=== PATIENT | female | born 2000 | race Caucasian/White ===

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

== ENCOUNTER 2020-12-15 03:53 | Emergency (ER) | payer OTHER, SELFPAY ==
[2019-06-02 13:09] VITALS: BMI 27.8
[2020-12-15 03:56] VITALS: TEMP 36.1; BMI 33.6
[2020-12-15] MEDS: 0.9% Normal Saline 1,000 ML 999 ML IV (03:57)
[2020-12-15] MEDS: Etomidate 20 MG/10 ML Vial IV (03:57)
[2020-12-15] MEDS: Rocuronium Bromide 50 MG/5 ML Vial 40 MG IV (03:57)
[2020-12-15 03:58] VITALS: BP 126/78; PULSE 123; RESP 16; O2SAT 100
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
[2020-12-15 04:13] LABS: Absolute Lymphocyte Count 1.85 X10^3/uL (0.83-4.51); Absolute Neutrophil Count 9.4 X10^3/uL (2.0-7.7); Basophil# 0.03 X10^3/uL; Basophil% 0.2 % (0-1); Eosinophil# 0.03 X10^3/uL; Eosinophils% 0.2 % (0-5); Hematocrit 40.9 % (37-47); Hemoglobin 12.8 g/dL (12.0-15.0); Lymphocyte # 1.85 X10^3/ul (0.83-4.51); Lymphocyte % 15.4 % (19-41); Mean Corp Hgb Conc 31.3 g/dL (32-36); Mean Corpuscular Hgb 29.1 pg (27.0-32.0); Mean Platelet Vol. 8.6 fl (6.2-12.0); Monocyte# 0.56 X10^3/uL; Monocyte% 4.7 % (0-10); NRBC Flagged by Analyzer 0 % (0-5); Neutrophil # 9.38 X10^3/uL (2.7-7.7); Neutrophil % 78.1 % (47-70); Platelet Count 398 K/mm3 (150-450); RBC Distribution Width CV 12.9 % (11.6-14.6); RBC Distribution Width SD 44.2 fl (35.1-43.9)
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
--- NOTE | 2020-12-15 04:21 | ED.RN ---
0357 RAMIN AND ETOMIDATE WERE GIVEN. [facility] ARRIVED AT [phone]. [phone] KAYE[address] OG PLACED. CALLED FOR PORTABLE CHEST FOR TUBE PLACEMENT. FLIGHT CREW REFUSED BOSS CATHETER DUE TO TIME CONSTRAINTS. MOTHER ON PHONE UPDATED BY WENDY SPICER RN. PT LEFT VIA [facility] AT 0412.
[2020-12-15 04:30] LABS: Anion Gap 7 (5-15); BUN 4 mg/dL (7-18); Calcium,Total 8.3 mg/dL (8.5-10.1); Chloride 110 mmol/L (98-107); Creatinine, Serum 0.66 mg/dL (0.55-1.02); EST Glomerular Filtration Rate 118 mL/min (>60); Est Glom Filt Rate - Afr Amer 143 mL/min (>60); Estimated Creatinine Clearance 126.22 ml/min; Glucose 100 mg/dL (74-106); Potassium 4.1 mmol/L (3.5-5.1); Sodium Level 144 mmol/L (136-145)
[2020-12-15 04:31] LABS: Internal QC Validated? YES +Cl - CLEAR BKGD; Pregnancy, Serum, hCG Quali. NEGATIVE Negative
[2020-12-15 05:06] VITALS: BP 134/86; PULSE 101; RESP 14; O2SAT 100
--- NOTE | 2020-12-15 05:23 | ED.RN ---
PARENTS WERE UPDATED BY WENDY Rondon
== END 2020-12-15 04:12 | disposition short-term general hospital (02) ==
PROVIDERS: Emergency Provider Student in an Organized Health Care Education/Training Program; PCP Family Medicine
DX: S01.511A Laceration without foreign body of lip, initial encounter (principal); S01.01XA Laceration without foreign body of scalp, initial encounter; R40.4 Transient alteration of awareness; S60.512A Abrasion of left hand, initial encounter; S60.511A Abrasion of right hand, initial encounter; S90.812A Abrasion, left foot, initial encounter; S90.811A Abrasion, right foot, initial encounter; V89.2XXA Person injured in unspecified motor-vehicle accident, traffic, initial encounter; Y93.9 Activity, unspecified; Y92.9 Unspecified place or not applicable
CPT/HCPCS: 31500; 71045; 80048; 82077; 84703; 85025; 96374; 96375; 99251; 99285; J7030; A4216; G0463

== ENCOUNTER 2021-01-24 12:30 | Emergency (ER) | payer MEDICAID, SELFPAY ==
[2021-01-24 12:32] VITALS: BP 119/80; PULSE 82; RESP 17; TEMP 36; O2SAT 100; BMI 26.5
--- NOTE | 2021-01-24 13:19 | CT_ITS ---
STUDY: CT CHEST WITHOUT CONTRAST REASON FOR EXAM: Female, 20 years old. Dysphagia following intubation. RADIATION DOSAGE (If Supplied By Facility): CTDIvol = ( 5.22 ) mGy, DLP = ( 197.18 ) mGycm TECHNIQUE: Transaxial imaging was performed without the administration of intravenous contrast material. Multiplanar coronal and sagittal images were reformatted. Individualized dose optimization techniques were used for this CT. COMPARISON: None. FINDINGS: The lungs are normal. There is no demonstrated pleural abnormality. Normal heart and pericardium. Normal mediastinum. Normal hilar regions. Normal unenhanced pulmonary arteries. Normal aorta arch and descending thoracic aorta. Normal osseous structures. There is no demonstrated abnormality of the visualized upper abdomen. CT/Chest without Contrast IMPRESSION: Normal unenhanced CT Chest examination. Electronically Signed: Jesse Perry MD at 13:58 EDT , Service support ,
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
== END 2021-01-24 15:52 | disposition home or self-care (01) ==
PROVIDERS: Emergency Provider Emergency Medicine; PCP Nurse Practitioner Family
DX: R09.89 Other specified symptoms and signs involving the circulatory and respiratory systems (principal); Z87.820 Personal history of traumatic brain injury
CPT/HCPCS: 71250; 99282

== ENCOUNTER → 2021-06-11 10:41 | Outpatient (CLI) | payer MEDICAID, SELFPAY ==
[2021-06-11 12:09] LABS: Erythrocyte Sedimentation Rate 10 mm/hr (0-30)
[2021-06-11 12:33] LABS: ALB/GLOB Ratio 1.1 RATIO (0.9-2.4); AST(SGOT) 17 U/L (15-37); Alanine Aminotransfer ALT/SGPT 30 U/L (13-56); Albumin, Serum 4.1 g/dL (3.2-5.0); Alkaline Phosphatase 81 U/L (45-117); Anion Gap 7 (5-15); BUN 12 mg/dL (7-18); BUN/Creat Ratio 19.3 RATIO (10-20); Calcium,Total 8.9 mg/dL (8.5-10.1); Chloride 106 mmol/L (98-107); Creatinine, Serum 0.62 mg/dL (0.55-1.02); EST Glomerular Filtration Rate 127 mL/min (>60); Est Glom Filt Rate - Afr Amer 153 mL/min (>60); Globulin 3.9 g/dL (2.2-4.2); Glucose 73 mg/dL (74-106); Potassium 3.4 mmol/L (3.5-5.1); Sodium Level 139 mmol/L (136-145)
[2021-06-11 12:38] LABS: Vitamin B12 335 pg/mL (211-911)
== END ==
PROVIDERS: PCP Nurse Practitioner Family; Referring Provider Psychiatry & Neurology Neurology; Visit Provider Psychiatry & Neurology Neurology
DX: G93.40 Encephalopathy, unspecified (principal)
CPT/HCPCS: 36415; 80053; 82175; 82607; 83655; 83825; 85652

== ENCOUNTER → 2021-06-13 10:54 | Outpatient (CLI) | payer MEDICAID, SELFPAY ==
[2021-06-17 20:12] LABS: Arsenic 7245 4 ug/L (2-23); Lead, Blood < 1 ug/dL (0-4); Mercury, Blood 85324 < 1.0 ug/L (0.0-14.9)
== END ==
PROVIDERS: PCP Nurse Practitioner Family; Visit Provider Nurse Practitioner Family
DX: G93.40 Encephalopathy, unspecified (principal)
CPT/HCPCS: 82175; 83655; 83825

== ENCOUNTER 2021-07-24 10:00 | Outpatient (RCR) | payer MEDICAID, SELFPAY ==
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
--- NOTE | 2021-05-28 10:23 | HP.OTDCSUM ---
It has been my pleasure to treat ROEL PAGAN under orders from Dr. Adán Humphrey MD, for the diagnosis of TBI with loss of consciousness for a total of 21 visit(s). Please see the following information for a summary of their discharge status. % Improvement: 80 Objective/Function: pt demo with a increase in left shoulder flexion to 170* from 125* and shoulder abduction 170 a increase from 135*. pt demo with left shoulder MMT 4+/5 a increase from 2-/5. right 50# left 55#. right lateral pinch 15# left 15#. right tripod pinch 12# left 12#. pt currently reports she is ind. with her ADLS. pt has reach goals in OT and can be d/c Patient Goals: Regain Mobility, Regain Strength, Decrease Pain, Increase ROM, Resume Former Household Responsibilities (Cooking,Cleaning,Yard, etc.), Resume Hobbies Goal:: pt will demonstrate an increase in shoulder strength to a 4+/5 to be able to carry her son by d/c. Goal:: pt will demonstrate an increase in L shoulder flex/abduction by at least 45* without pain to be more independent in bathing by d/c. Goal:: pt will self report a decrease in pain to no more than a 1/10 with use and during sleep by d/c. Goal:: pt will self report ability to independently bathe herself by d/c. pt will report the ability to independently carry her son by d/c. Goal:: pt and/or mom will report an increase in L arm use for ADLs and IADLs by d/c. Plan: D/c Discharge Comments: Pt has met OT goals and is D/C with HEP and encouraged to initiate health and wellness program to continue to maintain strength and endurance- pt has also returned to her hobby of making custom tumblers. pt currently agrees with D/C If there are questions or concerns regarding this patient's occupational therapy, please fell free to call me at [phone]. Thank you for the referral of this patient. Sincerely, Nkechi Cleveland, OTR/L, CHT
--- NOTE | 2021-05-28 11:03 | HP.PTDCSUM_ITS ---
It has been my pleasure to treat ROEL PAGAN referred by Dr. Adán Humphrey MD, with the diagnosis of TBI/concussion with LOC, subdural hematoma for a total of 21 visit(s). Discharge Date: Please see the following information for a summary of their discharge status. Subjective: Goals looking at driving remedial. Plan to see neurologist. Denies dizziness, occasional AUGUSTINE. Improved with all daily tasks. % Improvement: 85 Objective/Function: GAIT: normal. BALANCE: normal. MMT: 5/5 ble Goal 1:: I with HEP Goal Progress: Goal Met Goal 2:: Improve CATSIB by 5 points or > to improve function and balance Goal Progress: Goal Met Goal 3:: Patient to increase strength by 5/5 BLE to improve function or gait Goal 4:: Patient to improve LFES score by 5 -10 points or > to improve QOL Goal Progress: Goal Met Plan: D/C If there are questions or concerns regarding this patient's physical therapy, pl ease feel free to call me at [phone]. Thank you for the referral of this patient. Sincerely, Franklin Ojeda, PT, Cert MDT, OCS Balance/Gait/Functional tests - Balance/Special Test Scores Functional Gait Assessment Score: 30 % Disability: 0 CATSIB Score (Max score 120 seconds): 120 Lower Extremity Functional Score: 76
--- NOTE | 2021-10-16 15:26 | HP.SP.DC ---
ST Discharge Summary - Discharged: Discharge: Ranjana Doyle is discharged from speech therapy at [facility] as of July 24, 2021. She was evaluated following her TBI on 01/18/21. She had weekly visits with a total of 14 visits completed. Her goals focused on recall skills, sustained and divided attention skills. All goals were met and she was doing very well. She was looking for a job as well as thinking about driving. Her parents requested a driving evaluation before she was to drive. She was provided information on how to obtain one. Lengthy education regarding recall strategies was provided during the course of therapy and patient was able to independently use. Her attention was near baseline at the time of discharge per the patient. She made excellent progress during therapy. No further therapy was warranted. Thank you for allowing me to participate in the care of this patient.
== END 2021-07-24 19:00 | disposition home or self-care (01) ==
LOC: SP 10:00
PROVIDERS: PCP Family Medicine; Referring Provider Physical Medicine & Rehabilitation; Visit Provider Physical Medicine & Rehabilitation
DX: S06.9X9D Unspecified intracranial injury with loss of consciousness of unspecified duration, subsequent encounter (principal); S06.5X0D Traumatic subdural hemorrhage without loss of consciousness, subsequent encounter; S36.113D Laceration of liver, unspecified degree, subsequent encounter; X58.XXXD Exposure to other specified factors, subsequent encounter
CPT/HCPCS: 92507; 92523; 97110; 97162; 97166; 97530

== ENCOUNTER → 2022-02-28 | Outpatient (CLI) | payer OTHER, MEDICAID, SELFPAY ==
--- NOTE | 2022-02-28 12:37 | RAD_ITS ---
STUDY: XR Shoulder Min 2 Views REASON FOR EXAM: Female, 21 years old. PAIN TECHNIQUE: XR Shoulder Min 2 Views RIGHT COMPARISON: None. FINDINGS: Normal glenohumeral articulation. Normal acromioclavicular joint. Normal acromion. Normal humeral head and visualized proximal humerus. The soft tissue structures are unremarkable. Normal visualized pulmonary apex. RAD/Shoulder min 2 Views IMPRESSION: There are no acute findings of the shoulder. Electronically Signed: Christopher Neumann MD at 17:00 EDT ,
== END | disposition home or self-care (01) ==
LOC: MTRAD 12:35
PROVIDERS: PCP Nurse Practitioner Family; Referring Provider Nurse Practitioner Family; Visit Provider Nurse Practitioner Family
DX: M25.511 Pain in right shoulder (principal)
CPT/HCPCS: 73030

== ENCOUNTER → 2022-09-18 | Outpatient (CLI) | payer BC, MEDICAID, SELFPAY ==
[2022-09-18 12:15] LABS: HIV - WCH Non-Reactive (Nonreactive); Hepatitis C Antibody Non-Reactive (Nonreactive); Syphilis Antibodies Non-reactive
[2022-09-19 08:36] LABS: HSV 2 IgG < 0.91 index (0.00-0.90)
[2022-09-22 01:07] LABS: Chlamydia By Nucleic Acid AMP Negative (Negative)
[2022-09-22 10:29] LABS: Gonococcus By Nucleic Acid AMP Negative (Negative)
[2022-09-25 09:45] LABS: HPV Reflexed? NOT INDICATED
== END | disposition home or self-care (01) ==
PROVIDERS: PCP Nurse Practitioner Family; Referring Provider Nurse Practitioner Women's Health; Visit Provider Nurse Practitioner Women's Health
DX: Z12.4 Encounter for screening for malignant neoplasm of cervix (principal); Z20.2 Contact with and (suspected) exposure to infections with a predominantly sexual mode of transmission
CPT/HCPCS: 36415; 86695; 86696; 86703; 86780; 86803; 87491; 87591; 88175; G0145

== ENCOUNTER 2023-07-13 16:06 | Emergency (ER) | payer MEDICAID, OTHER, SELFPAY ==
[2023-07-13 16:09] VITALS: BP 126/77; PULSE 79; RESP 18; TEMP 35.6; O2SAT 100; BMI 22.2
[2023-07-13 16:40] LABS: Bacteria 0 SEEN /hpf (None Seen); Mucous, Urine 0 SEEN /hpf (<or=2+)
[2023-07-13 16:52] LABS: Color, Urine Yellow (Yellow); Glucose, Dipstick Normal (Normal); Ketone-Dipstick 50 mg/dl (Negative); Leukocyte Esterase-Dipstick 25 /ul (Negative); Nitrite-Dipstick Negative (Negative); Occult Blood-Urine 25 /ul (Negative); Protein-Dipstick Negative (Negative); Specific Gravity, Urine 1.005 (1.002-1.030); Urine Bilirubin Dipstick Negative (Negative); Urine Clarity Sl. Cloudy (Clear); Urine Urobilinogen Normal (Normal); Urine pH 6.5 (5.0 - 8.0)
[2023-07-13 17:05] LABS: Red Blood Cells-Urine 0-5 SEEN /hpf (0-5); Squamous Epithelial Cells - UA 0-5 SEEN /hpf (5-10); White Blood Cells 0-5 SEEN /hpf (0-5)
[2023-07-13 17:06] LABS: Absolute Lymphocyte Count 1.46 X10^3/uL (0.83-4.51); Absolute Neutrophil Count 4.4 X10^3/uL (2.0-7.7); Basophil# 0.05 X10^3/uL; Basophil% 0.8 % (0-1); Eosinophil# 0.04 X10^3/uL; Eosinophils% 0.6 % (0-5); Hematocrit 37.9 % (37-47); Hemoglobin 12.5 g/dL (12.0-15.0); Lymphocyte # 1.46 X10^3/ul (0.83-4.51); Lymphocyte % 23.1 % (19-41); Mean Corpuscular Hgb 30.4 pg (27.0-32.0); Mean Corpuscular Volume 92.2 fL (81-99); Mean Platelet Vol. 9.2 fl (6.2-12.0); Monocyte# 0.36 X10^3/uL; Monocyte% 5.7 % (0-10); NRBC Flagged by Analyzer 0 % (0-5); Neutrophil # 4.41 X10^3/uL (2.7-7.7); Neutrophil % 69.6 % (47-70); Platelet Count 329 K/mm3 (150-450); RBC Distribution Width CV 12.1 % (11.6-14.6); RBC Distribution Width SD 40.9 fl (35.1-43.9); Red Blood Count 4.11 M/mm3 (4.2-5.4); White Blood Count 6.3 K/mm3 (4.4-11.0)
[2023-07-13 17:18] LABS: Internal QC Validated? YES +Cl - CLEAR BKGD
[2023-07-13 17:19] LABS: Pregnancy, Serum, hCG Quali. NEGATIVE Negative
[2023-07-13 17:25] LABS: ALB/GLOB Ratio 1.2 RATIO (0.9-2.4); AST(SGOT) 21 U/L (15-37); Alanine Aminotransfer ALT/SGPT 25 U/L (13-56); Albumin, Serum 4.8 g/dL (3.2-5.0); Alkaline Phosphatase 66 U/L (45-117); Anion Gap 9 (5-15); BUN 7 mg/dL (7-18); BUN/Creat Ratio 9.8 RATIO (10-20); Calcium,Total 9.7 mg/dL (8.5-10.1); Chloride 104 mmol/L (98-107); Creatinine, Serum 0.71 mg/dL (0.55-1.02); EST Glomerular Filtration Rate 107 mL/min (>60); Est Glom Filt Rate - Afr Amer 129 mL/min (>60); Estimated Creatinine Clearance 101.07 ml/min; Globulin 3.9 g/dL (2.2-4.2); Glucose 73 mg/dL (74-106); Potassium 3.5 mmol/L (3.5-5.1); Protein, Total 8.7 g/dL (6.4-8.2); Sodium Level 138 mmol/L (136-145)
--- NOTE | 2023-07-13 18:56 | EX.ED.GENINJ ---
HPI History of Present Illness Chief Complaint: Abd Pain [facility] Medical History Multiple pelvic fractures TBI (traumatic brain injury) Home Medications levonorgestrel 21 mcg/24 hours (8 yrs) 52 mg intrauterine device (Mirena) 1 device intrauterine ONCE 06/02/19 [History Last Taken Unknown] fluoxetine 40 mg capsule (Prozac) 40 mg PO DAILY 04/18/21 [History Last Taken Unknown] amitriptyline 10 mg tablet 10 mg PO DAILY 09/18/22 [History Last Taken Unknown] cariprazine 1.5 mg capsule (Vraylar) 1.5 mg PO Q OTHER DAY 09/18/22 [History Last Taken Unknown] promethazine 25 mg tablet 25 mg PO TID PRN nausea and vomiting #20 tabs 07/13/23 [Rx Last Taken Unknown] Allergy/AdvReac Type Severity Reaction Status Date / Time No Known Allergies Allergy Verified 07/13/23 16:09 Family History Grandfather Diabetes Surgical History (Updated 09/18/22 @ 10:30 by Ladi Yan) History of hip surgery Social History (Updated 09/18/22 @ 10:30 by Ladi Yan) current occupational status: employed current occupation: [employer] Smoking Status: Never smoker alcohol intake: never substance use type: does not use caffeine: Yes what type of physical activity do you participate in: none seatbelt use: always do you feel safe at home: Yes additional social history: single EXAM Physical Exam Const Vital Signs: 07/13/23 16:09 07/13/23 21:00 07/13/23 23:24 Temperature 96.1 F L Temperature Source Temporal Pulse Rate 79 68 Respiratory Rate 18 16 16 Blood Pressure 126/77 H 118/79 Blood Pressure Mean 93 92 Pulse Ox 100 97 Oxygen Delivery Method Room Air MDM MDM MDM Narrative Medical decision making narrative: HISTORY OF PRESENT ILLNESS: 22-year-old female presents abdominal pain nausea vomiting unintentional 30 pound weight loss over the last 2 months. Notes worsening abdominal pain with radiation to back. Denies alcohol use. Denies abdominal surgeries. Last bowel was yesterday REVIEW OF SYSTEMS: Pertinent positives: Abdominal pain, nausea, vomiting Pertinent negatives: Diarrhea, urinary complaints, hematemesis, melena, chest pain, shortness of breath, leg swelling, focal weakness PHYSICAL EXAM: Nursing triage notes reviewed, Vital signs reviewed Constitutional: please see [facility] HENT: MMM Eyes: Pupils equal round and reactive to light, Extraocular muscles intact Neck: No stridor, no JVD, full neck ROM Lungs: Clear to auscultation, No wheezing or rales. No increased work of breathing, no conversational dyspnea, no accessory muscle use, no nasal flaring. No respiratory distress noted Heart: Regular rate and rhythm, No murmurs, No rubs and No gallops, 2+ distal pulses (radial, femoral, posterior tibial) in all extremities Abdomen: Soft, diffuse TTP, noted RUQ TTP, negative cobian sign, no rigidity, rebound or guarding, no obvious peritoneal signs, no palpable pulsatile abdominal masses, no auscultated abdominal bruit : No CVAT Extremities: No edema Neuro: No focal neurological deficits, cranial nerves II through XII intact, 5/5 strength in all extremities. Intact sensation to light touch in all extremities, 2+ reflexes bilateral patella tendons. Normal gait. No ataxia. Skin: No rash or lesions noted MEDICAL DECISION MAKING: Chief Complaint: Abdominal pain, nausea vomiting External records reviewed: No recent advanced imaging of the abdomen or pelvis [facility] Narrative: Patient was hemodynamically stable, afebrile, nontoxic-appearing. Abdominal exam was benign with diffuse and RUQ TTP. I considered the following differential diagnosis: AAA, small bowel obstruction, abdominal perforation, appendicitis, pancreatitis, hepatobiliary pathology (acute cholecystitis), mesenteric ischemia, pathology (ie nephrolithiasis, pyelonephritis). ALL IMAGES (IF OBTAINED) HAVE BEEN PERSONALLY REVIEWED AND INTERPRETED BY MYSELF. CBC without leukocytosis, severe anemia, no thrombocytopenia. BMP without evidence of significant electrolyte abnormalities, no anion gap, no acute kidney injury. Serum test is negative Urinalysis shows no evidence of urinary inflammation suggestive of UTI Urine test is negative Right quadrant ultrasound shows no evidence hepatobiliary obstruction The synthesis of the patient's history, physical exam, labs and images suggest no acute life-limiting etiology. There is no indication for imaging at this time as patient had a benign abdominal exam with no leukocytosis and no signs hepatobiliary structure. She had no Cobian sign or right upper quadrant tenderness on my exam. She will benefit from outpatient PCP and GI follow-up. She is given Phenergan for home-going treatment of nausea vomiting Repeat abdominal exam remained benign. I see nothing that would suggest an acute abdomen at this time. Based on history physical exam, risk factors, I have a low for acute surgical abdominal pathology, is very low. There is no evidence of peritonitis sepsis or toxicity at this time. I feel the patient can be managed as an outpatient with follow-up with her primary physician in the next 24 to 48 hours or soon as possible. Instructions have been given for the patient to return to the ED for worsening pain, anorexia, high fevers, intractable vomiting or bleeding. The patient and/or family, caregivers express understanding. The patient and/or family, caregivers agrees with the plan. Shared decision making: I will have a discussion with the patient and or visitors regarding risk/benefits of further testing or admission. They will be made aware of of the risk/benefits inherent in this decision they will be given the opportunity to voice understanding. Total critical care time today provided was at least 0 minutes. This excludes separately billable procedures. Critical care time (if documented) is secondary to the patient having high probability of clinically significant/life threatening deterioration in the patient's condition which required my urgent intervention. Impression: 1. Acute on chronic abdominal pain 2. Nausea vomiting 3. Weight loss Dispo: Discharge Lab Data Labs: Laboratory Results - last 24 hr 07/13/23 07/13/23 16:35 16:50 WBC 6.3 RBC 4.11 L Hgb 12.5 Hct 37.9 MCV 92.2 MCH 30.4 MCHC 33.0 RDW Std Deviation 40.9 RDW Coeff of Deepali 12.1 Plt Count 329 MPV 9.2 Immature Gran % (Auto) 0.200 Neut % (Auto) 69.6 Lymph % (Auto) 23.1 Lawrence % (Auto) 5.7 Eos % (Auto) 0.6 Baso % (Auto) 0.8 Absolute Neuts (auto) 4.4 Absolute Lymphs (auto) 1.46 Nucleated RBC % 0 Sodium 138 Potassium 3.5 Chloride 104 Carbon Dioxide 25.0 Anion Gap 9 BUN 7 Creatinine 0.71 Estim Creat Clear Calc 101.07 Est GFR (MDRD) Af Amer 129 Est GFR (MDRD) Non-Af 107 BUN/Creatinine Ratio 9.8 L Glucose 73 L Calcium 9.7 Total Bilirubin 0.70 AST 21 ALT 25 Alkaline Phosphatase 66 Total Protein 8.7 H Albumin 4.8 Globulin 3.9 Albumin/Globulin Ratio 1.2 Serum , Qual NEGATIVE Urine Color Yellow Urine Clarity Sl. Cloudy Urine pH 6.5 Ur Specific [place] 1.005 Urine Protein Negative Urine Glucose (UA) Normal Urine Ketones 50 H Urine Occult Blood 25 H Urine Nitrite Negative Urine Bilirubin Negative Urine Urobilinogen Normal Ur Leukocyte Esterase 25 H Urine RBC 0-5 SEEN Urine WBC 0-5 SEEN Ur Squamous Epith Cells 0-5 SEEN Urine Bacteria 0 SEEN Urine Mucus 0 SEEN Radiography Diagnostic Testing: Clinical Impression(s) from Imaging Studies Gallbladder Ultrasound 07/13/23 21:41 IMPRESSION: Normal right upper quadrant ultrasound examination. Electronically Signed: Sandee Tate MD at 22:29 EST , Discharge Plan Triage Chief Complaint: Abd Pain Other Complaint: Nausea/Vomiting ED Provider: Juan Pablo Ni Dx/Rx/DC Orders Instructions: ED Abdominal Pain Unkn Cause Fem Prescriptions: New promethazine 25 mg tablet 25 mg PO TID PRN (Reason: nausea and vomiting) Qty: 20 0RF No Action Mirena 20 mcg/24 hours (5 yrs) 52 mg intrauterine device 1 device intrauterine ONCE fluoxetine [Prozac] 40 mg capsule 40 mg PO DAILY amitriptyline 10 mg tablet 10 mg PO DAILY Vraylar 1.5 mg capsule 1.5 mg PO Q OTHER DAY Primary Care Provider: Zehra Antonio NP Referrals: Lobito Belcher DO [Med Staff - Active Staff] - Zhera Antonio NP, [facility] [Primary Care Provider] - Activity Restrictions/Additional Instructions: Thank you for trusting us with your care today! Please take Tylenol (2 pills, 650 mg), ibuprofen (2 pills, 400 mg) every 6 hours as needed for pain and fever control. Please return to the emergency department if your symptoms change or worsen. Please follow with your primary care physician for further outpatient evaluation and management. Disposition Disposition: Home, Self Care Discharge Date/Time: 07/13/23 23:26 Capacity Legal Global Safety Officer Reflex Medical hold order details:: IF a medical hold is selected below, a suggested order for a MEDICAL HOLD will reflex upon signing the document. Next of kin: [place] law dictates a PRIORITY LIST for identifying legal decision-maker/legal next of kin in the following order (LNOK): 1st: The patient?s legal guardian, if any 2nd: The patient's spouse (if status is questionable, consult Risk Management) 3rd: The patient?s adult child(yajaira) (majority, if multiple children) 4th: The patient?s parents 5th: The patient?s adult siblings (majority, if multiple children siblings)
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
[2023-07-13] MEDS: 0.9% Normal Saline (500mL Bag) 500 ML 999 ML IV (20:40)
[2023-07-13] MEDS: proMETHazine 25 MG Tablet PO (20:41)
[2023-07-13] MEDS: Famotidine 200 MG/20 ML MDV 20 MG in 0.9% Normal Saline (Pres. free 8 ML 300 MG IV (20:45)
[2023-07-13 21:00] VITALS: RESP 16
--- NOTE | 2023-07-13 21:41 | US_ITS ---
STUDY: ABDOMINAL ULTRASOUND - RIGHT UPPER QUADRANT REASON FOR VISIT: Female, 22 years old RUQ pain TECHNIQUE: Ultrasound evaluation of the right upper quadrant was performed with real-time and static gonzalez-scale imaging. TECHNICAL QUALITY: Adequate. COMPARISON: None. FINDINGS: Liver: The liver measures 15.8 cm. There is normal echogenicity of the liver. The bile ducts are within normal limits. There is hepatic color flow. The direction of portal flow is hepatopetal. There is no demonstrated mass lesion. Gallbladder: Normal distended gallbladder. The gallbladder wall measures 2.0 mm. There is a negative sonographic Cobian''s sign. There is no pericholecystic fluid. There are no gallstones. Common Bile Duct (C.B.D.): The common bile duct measures 3.0 mm. Pancreas: Normal size of the head, body and tail of the pancreas. There is normal echogenicity of the pancreas. There is no demonstrated pancreatic mass or cyst. Right Kidney: Normal size of the right kidney. The right kidney measures 11.4 x 4.5 x 4.1 cm. Normal renal cortex. The right cortex measures 1.7 cm. There is no demonstrated renal mass or cyst. There is no right hydronephrosis. US/Gallbladder IMPRESSION: Normal right upper quadrant ultrasound examination. Electronically Signed: Sandee Tate MD at 22:29 EST ,
[2023-07-13] MEDS: Ketorolac 15 MG/ML Vial IV (22:34)
[2023-07-13] MEDS: Haloperidol Lactate 5 MG/ML Vial 1 MG IV (22:34)
[2023-07-13 23:24] VITALS: BP 118/79; PULSE 68; RESP 16; O2SAT 97
== END 2023-07-13 23:26 | disposition home or self-care (01) ==
PROVIDERS: Emergency Provider Emergency Medicine; PCP Nurse Practitioner Family; Referring Provider Emergency Medicine; Visit Provider Emergency Medicine
DX: R10.9 Unspecified abdominal pain (principal); R11.2 Nausea with vomiting, unspecified; R63.4 Abnormal weight loss
CPT/HCPCS: 76705; 80053; 81001; 84703; 85025; 96365; 96366; 96375; 99283; J7040; A4216; J3490

== ENCOUNTER → 2023-07-16 | Outpatient (CLI) | payer OTHER, MEDICAID, SELFPAY ==
--- NOTE | 2023-07-16 09:19 | US_ITS ---
EXAM: US ABDOMEN COMPLETE CLINICAL INDICATION: VOMITING TECHNIQUE: Real-time ultrasound of the abdomen with image documentation. COMPARISON: No relevant prior studies available. FINDINGS: LIVER: The right lobe liver measures 15.7 cm. There is normal echotexture. No intrahepatic biliary ductal dilation. GALLBLADDER: Gallbladder wall measures 2 mm. No shadowing gallstone. No pericholecystic fluid. Negative sonographic Cobian''s sign. COMMON BILE DUCT: The common bile duct measures 4 mm. The proximal common bile duct is within normal limits for the patient''s age. PANCREAS: Unremarkable as visualized. No focal abnormality is demonstrated in the pancreas. No pancreatic ductal dilatation. KIDNEYS: The right kidney measures 10.8 x 3.8 x 5.9 cm. Right renal cortex measures 1.1 cm. Left kidney measures 11.7 x 6.0 x 4.6 cm. Left renal cortex measures 1.4 cm. There is no hydronephrosis. No shadowing calculus. No focal lesion or perinephric collection is demonstrated. SPLEEN: Spleen measures 11.1 cm in length. AORTA: Proximal aorta measures 1.4 cm, the mid aorta measuring 1.5 cm and distal aorta measures 1.2 cm. INFERIOR VENA CAVA: Unremarkable. The IVC is patent. OTHER VASCULATURE: The iliac arteries measure 7 mm. FREE FLUID: There is no free fluid. US/Abdomen Complete IMPRESSION: No acute findings in the abdomen. Electronically Signed: Angel Luis Tabor MD at 16:31 EST ,
== END | disposition home or self-care (01) ==
PROVIDERS: PCP Nurse Practitioner Family
DX: R11.10 Vomiting, unspecified (principal); Z97.5 Presence of (intrauterine) contraceptive device
CPT/HCPCS: 76700

== ENCOUNTER → 2023-07-23 | Outpatient (CLI) | payer OTHER, MEDICAID, SELFPAY ==
--- NOTE | 2023-07-23 14:35 | US_ITS ---
INDICATION: IUD EXAMINATION: Ultrasound US Pelvis Non-OB Complete TECHNIQUE: Transabdominal pelvic ultrasound was performed. Grayscale, spectral waveform, and color flow Doppler evaluation of the adnexa. COMPARISON: No relevant prior comparison study available FINDINGS: UTERUS: Anteverted. The uterus measures 9 x 5.8 x 4.5 cm. There is no uterine mass. The endometrial stripe measures 4 mm in AP diameter which is within normal limits. An IUD is seen in place in the endometrial cavity. RIGHT OVARY: The right ovary measures 4.3 x 3.4 x 2.6 cm. Small cyst/prominent follicle is seen measuring about 2.4 cm. There is normal arterial inflow and venous outflow present in the right ovary. LEFT OVARY: The left ovary measures 3.5 x 2.2 x 1.5 cm. Non-enlarged, normal echogenicity. There is normal arterial inflow and venous outflow present in the left ovary. FREE FLUID: None. US/Pelvic (Non ) IMPRESSION: IUD in place. Electronically Signed: Gato Pickard MD at 15:22 EST ,
== END | disposition home or self-care (01) ==
LOC: US 14:31
PROVIDERS: PCP Nurse Practitioner Family
DX: R11.0 Nausea (principal)
CPT/HCPCS: 76856

== ENCOUNTER → 2024-07-27 | Outpatient (CLI) | payer OTHER, MEDICAID, SELFPAY ==
[2024-07-27 13:17] LABS: HIV - WCH Non-Reactive (Nonreactive); Hepatitis C Antibody Non-Reactive (Nonreactive); Syphilis Antibodies Non-reactive
[2024-07-30 11:07] LABS: Chlamydia By Nucleic Acid AMP Negative (Negative); Gonococcus By Nucleic Acid AMP Negative (Negative)
== END | disposition home or self-care (01) ==
LOC: BWCLAB 11:30
PROVIDERS: PCP Nurse Practitioner Family; Referring Provider Nurse Practitioner Women's Health; Visit Provider Nurse Practitioner Women's Health
DX: Z20.2 Contact with and (suspected) exposure to infections with a predominantly sexual mode of transmission (principal)
CPT/HCPCS: 36415; 86695; 86696; 86703; 86780; 86803; 87491; 87591

== ENCOUNTER 2024-09-26 15:01 | Emergency (ER) | payer OTHER, MEDICAID, SELFPAY ==
[2024-09-26 15:02] VITALS: BP 147/89; PULSE 82; RESP 16; TEMP 36.6; O2SAT 99; BMI 25.9
[2024-09-26 15:20] VITALS: BP 118/75; BP 120/73; BP 122/90; PULSE 73; PULSE 76
--- NOTE | 2024-09-26 15:20 | EKG12_ITS ---
Test Reason : DIZZINESS Blood Pressure : */* mmHG Vent. Rate : 87 BPM Atrial Rate : 87 BPM P-R Int : 138 ms QRS Dur : 96 ms QT Int : 378 ms P-R-T Axes : 43 67 50 degrees QTcB Int : 454 ms Normal sinus rhythm with sinus arrhythmia Normal ECG Confirmed by CYDNEY POWER, BAILEY ([id number]), make up editor ARIES DAVE ([id number]) on 09/27/2024 8:38:59 AM Referred By: Fátima Taveras Confirmed By: BAILEY LAMAS MD
--- NOTE | 2024-09-26 15:21 | EX.ED.DYSGE1 ---
HPI History of Present Illness Chief Complaint: Dizziness Detail of Chief Complaint: Dizziness Informant: patient Narrative Narrative: Patient presents to the emergency department complaint of a syncopal episode yesterday and feeling lightheaded today. Patient states that she was sitting in her bed yesterday and got thirsty so she got up and went to the kitchen to get water at that time remembers developing tunnel vision and shallow breathing and then woke up on the floor. She is not sure how long she was on the floor. She thinks maybe 15 minutes past from the time she remembers being in the bedroom until get back to the bedroom. When she woke up she members feeling very hot and sweaty. She asked her son to give her a washcloth. She denied any chest pain or palpitations. Patient laid in bed drink water yesterday and then woke up this morning feeling a little bit lightheaded. Throughout the day she has been feeling more lightheaded. She denies racing heart or palpitations. She denies recent illness. She has not had prior episodes. Does not think she is as she currently is on the Depo shot. [facility] Medical History Multiple pelvic fractures TBI (traumatic brain injury) Home Medications ?Medication ?Instructions ?Recorded ?Last Taken ?Type fluoxetine 40 mg capsule (Prozac) 40 mg PO DAILY 04/18/21 Unknown History dextroamphetamine-amphetamine 15 15 mg PO QDAY 07/27/24 Unknown History mg tablet (Adderall) medroxyprogesterone 150 mg/mL 150 mg IM [id number] #1 mL 07/27/24 Unknown Rx intramuscular suspension (Depo-Provera) mirtazapine 15 mg tablet 15 mg PO QDAY 07/27/24 Unknown History Allergy/AdvReac Type Severity Reaction Status Date / Time No Known Allergies Allergy Verified 09/26/24 15:01 Family History Grandfather Diabetes Surgical History History of hip surgery Social History current occupational status: employed current occupation: [id number] Smoking Status: Current every day smoker tobacco type: e-cigarettes alcohol intake: never substance use type: does not use caffeine: Yes what type of physical activity do you participate in: none seatbelt use: always do you feel safe at home: Yes additional social history: single ROS ROS ED Review of Systems ROS Unobtainable: other Constitutional Constitutional ED: Reports lethargy; Denies chills, fever(s), sweats or weight loss Eyes Eyes: Reports blurry vision; Denies change in vision or diplopia ENT ENT ED: Denies rhinorrhea or sore throat Cardiovascular Cardiovascular: Denies chest pain, orthopnea or racing heartbeat Respiratory/Chest Respiratory/Chest: Denies cough, dyspnea, dyspnea on exertion, orthopnea or sputum Gastrointestinal Gastrointestinal: Denies abdominal pain, diarrhea, nausea or vomiting Genitourinary Genitourinary ED: Denies dysuria, hematuria or urinary frequency Musculoskeletal Musculoskeletal: Denies arthralgias, back pain, myalgias or neck pain Integumentary Denies abscess, Abrasions or rash Neurologic Neurologic: Reports other Details: Syncope, lightheadedness ; Denies headache(s) or weakness Psychiatric Psychiatric: Denies anxiety, depression or suicidal thoughts Endocrine Endocrinology: Denies polydipsia, polyphagia or polyuria Hematologic/Lymphatic Hematologic/Lymphatic: Denies easy bleeding, easy bruising or lymphadenopathy Allergic/Immunologic Allergic/Immunologic ED: Denies mouth swelling, tongue swelling or urticaria EXAM Physical Exam Const Vital Signs: 09/26/24 15:02 09/26/24 15:20 09/26/24 15:53 Temperature 97.8 F Temperature Source Temporal Pulse Rate 82 71 Pulse Rate [Lying] 73 Pulse Rate [Sitting (for 1 minute prior to obtaining)] 76 Pulse Rate [Standing (for 1 minute prior to obtaining)] 76 Respiratory Rate 16 Blood Pressure 147/89 H 122/90 H Blood Pressure [Lying] 120/73 Blood Pressure [Sitting (for 1 minute prior to obtaining)] 118/75 Blood Pressure [Standing (for 1 minute prior to obtaining)] 122/90 H Blood Pressure Mean 108 100 Blood Pressure Mean [Lying] 88 Blood Pressure Mean [Sitting (for 1 minute prior to obtaining)] 89 Blood Pressure Mean [Standing (for 1 minute prior to obtaining)] 100 Pulse Ox 99 100 Oxygen Delivery Method Room Air Room Air 09/26/24 16:54 Temperature Temperature Source Pulse Rate 77 Pulse Rate [Lying] Pulse Rate [Sitting (for 1 minute prior to obtaining)] Pulse Rate [Standing (for 1 minute prior to obtaining)] Respiratory Rate 18 Blood Pressure 110/83 H Blood Pressure [Lying] Blood Pressure [Sitting (for 1 minute prior to obtaining)] Blood Pressure [Standing (for 1 minute prior to obtaining)] Blood Pressure Mean 92 Blood Pressure Mean [Lying] Blood Pressure Mean [Sitting (for 1 minute prior to obtaining)] Blood Pressure Mean [Standing (for 1 minute prior to obtaining)] Pulse Ox 100 Oxygen Delivery Method Room Air Positive well nourished and well developed General Appearance ED: well developed and NAD HEENT Reports TM's clear and moist mucous membranes normocephalic and atraumatic; Negative for trauma or tenderness Tympanic Membrane ED: Yes TM's clear Eyes PERRL and EOMs intact bilaterally General Eye ED: Negative for pale conjunctiva or scleral icterus Neck no lymphadenopathy, supple and no JVD General: Negative for tenderness Chest Wall inspection of chest normal and palpation of chest normal Chest: Negative for tenderness Resp normal respiratory effort and clear to auscultation bilaterally Effort and Inspection: Negative for respiratory distress or pain with movement Auscultation: Negative for rhonchi, wheezes or diminished lung sounds Cardio regular rate, regular rhythm, S1 normal heart sound, S2 normal heart sound and no murmurs Peripheral Pulses: pulses 2+ throughout GI normal to inspection, nondistended, normoactive bowel sounds, soft to palpation, non-tender, non-distended and no masses Back/Spine no CVA tenderness and no thoracic nor lumbar tenderness Extremity normal to inspection General Extremety ED: Negative for edema General Extremity: Negative for edema Neuro oriented x3, CN's II-XII intact bilaterally, no sensory deficits noted and gait normal Sensorium / Orientation: awake, alert, oriented to person, oriented to place and oriented to time Motor Exam: strength 5/5 throughout and strength abnormal Psych mental status grossly normal Skin no rashes or lesions noted and no wounds MDM MDM MDM Narrative Medical decision making narrative: Patient presents with a syncopal episode that occurred yesterday in addition to feeling lightheaded. She denies significant headache. No external evidence of trauma to her head noted. Neurologically intact. IV line established. Orthostatic vital signs obtained were negative. CBC with differential obtained showed a white count of 7.0 with hemoglobin 12 and platelet count of 368. Chemistries unremarkable. hCG was negative. Urinalysis without signs of infection. I did give her a liter normal same fluid bolus. She is feeling somewhat improved. I think she can be discharged to home. I do not think she needs any imaging of her brain as I have low suspicion for intracranial hemorrhage or skull fracture. Patient comfortable with plan. I suspect she likely had a vasovagal type episode regarding the syncope. Lab Data Attestation: I reviewed the patient's lab results. Labs: Laboratory Results - last 24 hr 09/26/24 09/26/24 15:45 15:50 WBC 7.0 RBC 4.08 L Hgb 12.3 Hct 37.6 MCV 92.2 MCH 30.1 MCHC 32.7 RDW Std Deviation 43.1 RDW Coeff of Deepali 12.6 Plt Count 368 MPV 9.2 Immature Gran % (Auto) 0.100 Neut % (Auto) 63.3 Lymph % (Auto) 29.1 [place] % (Auto) 5.7 Eos % (Auto) 1.1 Baso % (Auto) 0.7 Absolute Neuts (auto) 4.5 Absolute Lymphs (auto) 2.05 Nucleated RBC % 0 Sodium 141 Potassium 4.0 Chloride 107 Carbon Dioxide 17.8 L Anion Gap 16 H BUN 10 Creatinine 0.69 L Estim Creat Clear Calc 114.27 Est GFR (MDRD) Non-Af 123 BUN/Creatinine Ratio 14.6 Glucose 78 Calcium 9.0 Serum , Qual NEGATIVE Urine Color Yellow Urine Clarity Clear Urine pH 7.0 Ur Specific [place] 1.005 Urine Protein Negative Urine Glucose (UA) Normal Urine Ketones Negative Urine Occult Blood 10 H Urine Nitrite Negative Urine Bilirubin Negative Urine Urobilinogen Normal Ur Leukocyte Esterase Negative Urine RBC 0-5 SEEN Urine WBC 0-5 SEEN Ur Squamous Epith Cells 0-5 SEEN Urine Bacteria 0 SEEN Urine Mucus 0 SEEN EKG Initial EKG: Attestation: I personally reviewed and interpreted this EKG as follows: Comments: Sinus rhythm with ventricular rate of 87 bpm with occasional PACs Discharge Plan Triage Chief Complaint: Dizziness ED Provider: Fátima Taveras Dx/Rx/DC Orders Clinical Impression: Syncope, Dizziness Instructions: ED Dizziness, Uncertain Cause, ED Fainting, Vagal Reaction Prescriptions: No Action fluoxetine [Prozac] 40 mg capsule 40 mg PO DAILY dextroamphetamine-amphetamine [Adderall] 15 mg tablet 15 mg PO QDAY mirtazapine 15 mg tablet 15 mg PO QDAY medroxyprogesterone [Depo-Provera] 150 mg/mL suspension 150 mg IM [id number] Qty: 1 1RF Primary Care Provider: Zehra Antonio NP Referrals: Zehra Antonio NP, [employer] [Primary Care Provider] - 3-5 Days Print Language: Portuguese Disposition Disposition: Home, Self Care
[2024-09-26] MEDS: 0.9% Normal Saline (1000mL) 1,000 ML 1000 ML IV (15:45)
[2024-09-26 15:53] VITALS: BP 122/90; PULSE 71; O2SAT 100
[2024-09-26 16:15] LABS: Bacteria 0 SEEN /hpf (None Seen); Mucous, Urine 0 SEEN /hpf (<or=2+)
[2024-09-26 16:20] LABS: Absolute Lymphocyte Count 2.05 X10^3/uL (0.83-4.51); Absolute Neutrophil Count 4.5 X10^3/uL (2.0-7.7); Basophil# 0.05 X10^3/uL; Basophil% 0.7 % (0-1); Eosinophil# 0.08 X10^3/uL; Eosinophils% 1.1 % (0-5); Hematocrit 37.6 % (37-47); Hemoglobin 12.3 g/dL (12.0-15.0); Lymphocyte # 2.05 X10^3/ul (0.83-4.51); Lymphocyte % 29.1 % (19-41); Mean Corp Hgb Conc 32.7 g/dL (32-36); Mean Corpuscular Hgb 30.1 pg (27.0-32.0); Mean Corpuscular Volume 92.2 fL (81-99); Mean Platelet Vol. 9.2 fl (6.2-12.0); Monocyte% 5.7 % (0-10); NRBC Flagged by Analyzer 0 % (0-5); Neutrophil # 4.45 X10^3/uL (2.7-7.7); Neutrophil % 63.3 % (47-70); Platelet Count 368 K/mm3 (150-450); RBC Distribution Width CV 12.6 % (11.6-14.6); RBC Distribution Width SD 43.1 fl (35.1-43.9); Red Blood Count 4.08 M/mm3 (4.2-5.4)
[2024-09-26 16:21] LABS: Color, Urine Yellow (Yellow); Glucose, Dipstick Normal (Normal); Ketone-Dipstick Negative (Negative); Leukocyte Esterase-Dipstick Negative /ul (Negative); Nitrite-Dipstick Negative (Negative); Occult Blood-Urine 10 /ul (Negative); Protein-Dipstick Negative (Negative); Specific Gravity, Urine 1.005 (1.002-1.030); Urine Bilirubin Dipstick Negative (Negative); Urine Clarity Clear (Clear); Urine Urobilinogen Normal (Normal)
[2024-09-26 16:29] LABS: Internal QC Validated? YES +Cl - CLEAR BKGD; Pregnancy, Serum, hCG Quali. NEGATIVE Negative
[2024-09-26 16:47] LABS: Anion Gap 16 (5-15); BUN 10 mg/dL (4-19); BUN/Creat Ratio 14.6 RATIO (10-20); Carbon Dioxide 17.8 mmol/L (21.0-32.0); Chloride 107 mmol/L (98-108); Creatinine, Serum 0.69 mg/dL (0.70-1.20); EST Glomerular Filtration Rate 123 (>60); Estimated Creatinine Clearance 114.27 ml/min (50-250); Glucose 78 mg/dL (70-99); Sodium Level 141 mmol/L (133-145); Squamous Epithelial Cells - UA 0-5 SEEN /hpf (5-10)
[2024-09-26 16:48] LABS: Red Blood Cells-Urine 0-5 SEEN /hpf (0-5); White Blood Cells 0-5 SEEN /hpf (0-5)
[2024-09-26 16:54] VITALS: BP 110/83; PULSE 77; RESP 18; O2SAT 100
[2024-09-26 16:56] VITALS: BP 110/83; PULSE 77; RESP 18; TEMP 36.6; O2SAT 100
== END 2024-09-26 17:01 | disposition home or self-care (01) ==
PROVIDERS: Emergency Provider Emergency Medicine; PCP Nurse Practitioner Family; Referring Provider Emergency Medicine; Visit Provider Emergency Medicine
DX: R42 Dizziness and giddiness (principal); R55 Syncope and collapse
CPT/HCPCS: 80048; 81001; 84703; 85025; 93005; 96360; 99285; A4216

== ENCOUNTER → 2024-11-16 | Outpatient (CLI) | payer OTHER, SELFPAY ==
[2024-11-16 13:45] LABS: HIV Nonreactive (Nonreactive); Syphilis Antibodies Nonreactive (Nonreactive)
[2024-11-17 19:08] LABS: HCV Quant. RNA PCR HCV Not Detected IU/mL (.); HSV 1 IgG Reactive (Non Reactive); HSV 2 IgG Non Reactive (Non Reactive)
[2024-11-18 21:07] LABS: Chlamydia By Nucleic Acid AMP Negative (Negative); Gonococcus By Nucleic Acid AMP Negative (Negative)
== END | disposition home or self-care (01) ==
PROVIDERS: PCP Nurse Practitioner Family; Referring Provider Nurse Practitioner Family; Visit Provider Nurse Practitioner Family
DX: Z11.3 Encounter for screening for infections with a predominantly sexual mode of transmission (principal)
CPT/HCPCS: 36415; 86695; 86696; 86703; 86780; 87491; 87522; 87591

== ENCOUNTER → 2025-03-09 | Outpatient (CLI) | payer BC, SELFPAY ==
[2025-03-09 15:03] LABS: HIV Nonreactive (Nonreactive); Hepatitis B Surface Antigen Nonreactive (Nonreactive); Hepatitis C Antibody Nonreactive (Nonreactive); Syphilis Antibodies Nonreactive (Nonreactive)
[2025-03-13 06:07] LABS: Chlamydia By Nucleic Acid AMP Negative (Negative); Gonococcus By Nucleic Acid AMP Negative (Negative)
== END | disposition home or self-care (01) ==
LOC: BWCLAB 13:24
PROVIDERS: PCP Nurse Practitioner Family; Referring Provider Nurse Practitioner Family; Visit Provider Nurse Practitioner Family
DX: Z20.2 Contact with and (suspected) exposure to infections with a predominantly sexual mode of transmission (principal)
CPT/HCPCS: 36415; 86703; 86780; 86803; 87340; 87491; 87591